=== PATIENT | female | born 1975 | race Caucasian/White ===

== ENCOUNTER 2017-07-18 11:48 | Emergency (ER) | payer BC, OTHER ==
[2017-07-18 13:14] VITALS: BP 108/78
--- NOTE | 2017-07-18 13:36 | UC ---
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, buring with urination not sure if it is a UTI or just irritated - History Of Current Complaint Chief Complaint: UCGU Stated Complaint: UTI SYMPTOMS Time Seen by Provider: 07/18/17 13:14 Hx Obtained From: Patient Hx Last Menstrual Period: 06/20/17 ?: No Onset/Duration: Sudden Onset, Lasting Days Timing: Lasting Days Severity Initially: Mild Severity Currently: Moderate Character: Burning Aggravating Factor(s): Movement Associated Signs And Symptoms: Positive: Negative - Allergies/Home Medications Allergies/Adverse Reactions: Allergies Allergy/AdvReac Type Severity Reaction Status Date / Time No Known Allergies Allergy Verified 07/18/17 13:11 Home Medications: Home Medications Cetirizine* [ZyrTEC 10 MG TAB*] 10 mg PO DAILY 07/18/17 [History Confirmed 07/18] Hemorrhoidal OINT* [Preparation H*] 1 applic ID Q12H PRN 07/18/17 [History Confirmed 07/18/17] Miconazole TOPICAL CREAM 2%* [Monistat 2%*] 1 applic TOPICAL SEE INSTRUCTIONS PRN 07/18/17 [History Confirmed 07/18/17] Vitamin D CAP* [Drisdol CAP*] 50,000 units PO JULIAN 07/18/17 [History Confirmed 11/03] PMH/Surg Hx/FS Hx/Imm Hx Previously Healthy: Yes - Surgical History Surgery Procedure, Year, and Place: ACL 2000. [place] 2002. 2006 - Family History Known Family History: Negative: Cardiac Disease, Hypertension - Social History Alcohol Use: Occasionally Substance Use Type: None Smoking Status (MU): Never Smoked Tobacco Review of Systems Constitutional: Negative Skin: Rash Eyes: Negative ENT: Negative Respiratory: Negative Cardiovascular: Negative Gastrointestinal: Negative Genitourinary: Negative Motor: Negative Neurovascular: Negative Musculoskeletal: Negative Neurological: Negative Psychological: Negative Is Patient Immunocompromised?: No All Other Systems Reviewed And Are Negative: Yes Physical Exam Triage Information Reviewed: Yes Appearance: Well-Appearing, Well-Nourished, Pain Distress Vital Signs: Initial Vital Signs Temp 98.1 F 07/18/17 13:05 Pulse 84 07/18/17 13:05 Resp 16 07/18/17 13:05 BP 108/78 07/18/17 13:05 Pulse Ox 100 07/18/17 13:05 Vital Signs Reviewed: Yes Eye Exam: Normal ENT Exam: Normal Dental Exam: Normal Neck exam: Normal Respiratory Exam: Normal Cardiovascular Exam: Normal Abdominal Exam: Normal Bowel Sounds: Positive: Present Musculoskeletal Exam: Normal Neurological Exam: Normal Psychological Exam: Normal Skin: Positive: rashes - irritation of the perineum Complaint Female Dx - Course Course Of Treatment: hx obtained, exam performed ,meds reviewed, UA neg, educated on treatement of vaginitis, was reported improvment with monitstat - Differential Dx/Diagnosis Differential Diagnosis/HQI/PQRI: Urinary Tract Infection Provider Diagnoses: vaginitis Discharge - Discharge Plan Condition: Stable Disposition: HOME Patient Education Materials: Vulvovaginitis in Children (ED) Additional Instructions: 1. use the topical monistat as presribed or the cocnut oil topically 2-3 times a day for relief of the yeast infection 2. Your urine analysis today did not ursula infection.
== END 2017-07-18 13:44 | disposition home or self-care (01) ==
LOC: UCCORT 11:48
DX: N76.0 Acute vaginitis (principal)
CPT/HCPCS: 81003; 99212; G0463

== ENCOUNTER 2017-10-28 07:45 | Emergency (ER) | payer BC ==
[2017-10-28 08:08] VITALS: BP 116/76
--- NOTE | 2017-10-28 08:12 | UC ---
[facility] HPI - HPI Summary HPI Summary: 42 year old female with uti sx and dental pain. c/o L lower dental pain since Wednesday, sinus congestion with in helped with ibuprofen and mucinex- but states last night did not help. 2- also decreased urination and concerned for UTI= states does not have pain, but does have odor. Concern for sinus infection and also has had recent viral illness. went to the dentist and no cavity maybe sinus concern. no ENT. no fever. [ End ] - History of Current Complaint Chief Complaint: UCRespiratory Stated Complaint: URINARY,DENTAL,SINUS COMPLAINTS Time Seen by Provider: 10/28/17 08:08 Hx Obtained From: Patient Hx Last Menstrual Period: 10/18/16 Onset/Duration: Gradual Onset - Allergies/Home Medications Allergies/Adverse Reactions: Allergies Allergy/AdvReac Type Severity Reaction Status Date / Time Amoxicillin Allergy Unknown Verified 10/28/17 07:58 Reaction Details Home Medications: Home Medications Guaifenesin/Pseudo 600/60(NF) [Mucinex D 600/60 (NF)] 2 tab PO Q12H PRN [History Confirmed 10/28/17] Ibuprofen [Ibuprofen 200 MG] 600 mg PO Q6H PRN 10/28/17 [History Confirmed 10/28] PMH/Surg Hx/FS Hx/Imm Hx Previously Healthy: Yes - Surgical History Surgical History: Yes Surgery Procedure, Year, and Place: ACL 2000. [place] 2002. 2006 - Family History Known Family History: Negative: Cardiac Disease, Hypertension - Social History Occupation: Employed Full-time Alcohol Use: Occasionally Substance Use Type: None Smoking Status (MU): Never Smoked Tobacco - Immunization History Most Recent Influenza Vaccination: never Review of Systems Constitutional: Fever, Chills, Fatigue ENT: Dental Pain, Sore Throat, Nasal Discharge, Sinus Congestion, Sinus Pain/ Tenderness Gastrointestinal: Other - odorous urine Is Patient Immunocompromised?: No All Other Systems Reviewed And Are Negative: Yes Physical Exam Triage Information Reviewed: Yes Appearance: Well-Appearing, No Pain Distress, Well-Nourished Vital Signs: Initial Vital Signs Temp 98.1 F 10/28/17 08:02 Pulse 82 10/28/17 08:02 Resp 18 10/28/17 08:02 BP 116/76 10/28/17 08:02 Pulse Ox 100 10/28/17 08:02 Vital Signs Reviewed: Yes Eye Exam: Normal ENT Exam: Normal ENT: Positive: Sinus tenderness - left maxillary Dental Exam: Normal Neck exam: Normal Neck: Positive: 1 Respiratory Exam: Normal Cardiovascular Exam: Normal Abdominal Exam: Normal Musculoskeletal Exam: Normal Neurological Exam: Normal Psychological Exam: Normal Skin Exam: Normal Diagnostics - Laboratory Diagnostic Studies Completed/Ordered: u/a neg Dental Complaint Course/Dx - Course Course Of Treatment: viral in nature at this time =-= supportive treatment cont with flonsase , antihistamines and if sx persist or worsen in 3-4 days then can start antibiotic s and aware of SE - Differential Dx/Diagnosis Differential Diagnosis/Dx: Odontogenic Pain Provider Diagnoses: Sinusitis Discharge - Discharge Plan Condition: Good Disposition: HOME Prescriptions: Cefdinir [Cefdinir 300 MG CAP] 300 mg PO BID #20 cap Patient Education Materials: Sinusitis (ED) Referrals: Katlyn Baron PA [Primary Care Provider] - 4 Days (if needed) Additional Instructions: As we discussed your symptoms appear Viral and it is advised that you try supportive treatment with Flonase and Netti Pot with your current regimen and if your symptoms persist or worsen for 3-4 more days then at that time start the antibiotics.
== END 2017-10-28 08:40 | disposition home or self-care (01) ==
LOC: UCCORT 07:45
DX: J32.9 Chronic sinusitis, unspecified (principal); R82.90 Unspecified abnormal findings in urine; R53.83 Other fatigue; Z88.1 Allergy status to other antibiotic agents
CPT/HCPCS: 81003; 99212; G0463